=== PATIENT | female | born 1995 | race American Indian/Alaskan Native ===

== ENCOUNTER 2018-01-05 06:44 | Emergency (ER) | payer SELFPAY ==
[2018-01-05 06:55] VITALS: BMI 29.2
[2018-01-05 06:59] VITALS: RESP 18
[2018-01-05] MEDS ORDERED: Sodium Chloride 0.9% 1,000 ML IV STA (07:46)
--- NOTE | 2018-01-05 08:37 | ED PDOC ---
Arrival/HPI - General Chief Complaint: Dizziness/Lightheaded Time Seen by Provider: 01/05/18 07:22 Historian: Patient - History of Present Illness Narrative History of Present Illness (Text): 01/05/18 07:40 22 F, with past medical history of migraines, presents to the Emergency department with cc of dizziness and weakness since waking this morning at 05:00. Patient reports a headache and notes she vomited prior to arrival and has been feeling like she is going to pass out, with same symptoms currently. Patient denies any other complaints. Time/Duration: Prior to Arrival (onset at 05:00 this morning [employer] ) Symptom Onset: Sudden Symptom Course: Unchanged Context: Home Past Medical History - Provider Review Nursing Documentation Reviewed: Yes - Psychiatric Hx Substance Use: No - Anesthesia Hx Anesthesia: No Family/Social History - Physician Review Nursing Documentation Reviewed: Yes Family/Social History: No Known Family HX Smoking Status: Never Smoked Hx Alcohol Use: No Hx Substance Use: No Allergies/Home Meds Allergies/Adverse Reactions: Allergies No Known Allergies Allergy (Verified 01/05/18 07:20) Home Medications: Home Meds Medication Instructions Recorded Confirmed No Known Home Med 01/05/18 01/05/18 Review of Systems - Physician Review All systems were reviewed & negative as marked: Yes (All other systems negative except that noted in the HPI.) Physical Exam - Physical Exam Narrative Physical Exam (Text): Gen: VS reviewed, alert, well developed, well nourished, nontoxic, mild distress. ENT: normal pharynx Eye: EOMI, PERRL Neck: no JVD, supple, no adenopathy CV: regular rate, regular rhythm, no rubs, no murmer, no gallops, S1, S2, pulses equal and strong Pulm: no distress, clear to auscultation, no wheeze, no rhonci, breath sounds equal, no rales Abd: soft, nontender, no guarding, no rebound, no rigidity, normal bowel sounds Ext: no edema Skin: good color, no rash, no cyanosis Psych: responds appropriately to questions, normal affect Neuro: oriented x3, CN2-12 intact grossly, motor intact, sensation intact Vital Signs Reviewed: Yes Vital Signs Temp Pulse Resp BP Pulse Ox 01/05/18 06:58 97.8 F 72 18 106/63 100 Temperature: Afebrile Blood Pressure: Normal Pulse: Regular Respiratory Rate: Normal Appearance: Positive for: Well-Appearing, Non-Toxic, Comfortable Pain Distress: Mild Mental Status: Positive for: Alert and Oriented X 3 Medical Decision Making ED Course and Treatment: 01/05/18 07:40 Impression: Differential Diagnosis included but are not limited to: Plan: -- EKG -- CMP -- CBC (with differential) -- IV fluids -- [employer] -- Orthostatic Vital Signs -- POC Urine test -- Reassess and disposition Prior Visits: Notes and results from previous visits were reviewed. Progress Notes: 01/05/18 10:32 Pt feels better, has steady gait, nontoxic appearing, reports headache is mild and intermittent. Patient is refusing analgesics at this time. Patient is stable for discharge. - EKG Interpretation EKG Interpretation (Text): 01/05/18 10:21 0827: nsr at 71 bpm, nml qrs, nml axis, no acute sttw abn Interpreted by ED Physician: Yes - Medication Orders Current Medication Orders: Sodium Chloride (Sodium Chloride 0.9%) 1,000 mls @ 999 mls/hr IV .Q1H1M STA Stop: 01/05/18 08:46 Last Admin: 01/05/18 08:21 Dose: 999 mls/hr eMAR Start Stop Document 01/05/18 08:21 SRE (Rec: 01/05/18 08:22 SRE [id number]) Intravenous Solution Start Date 01/05/18 Start Time 08:00 End Date 01/05/18 End time 09:00 Total Infusion Time 60 - Scribe Statement The provider has reviewed the documentation as recorded by the Marjibconsuelo Hanks All medical record entries made by the Marjibconsuelo were at my direction and personally dictated by me. I have reviewed the chart and agree that the record accurately reflects my personal performance of the history, physical exam, medical decision making, and the department course for this patient. I have also personally directed, reviewed, and agree with the discharge instructions and disposition. Disposition/Present on Arrival - Present on Arrival Any Indicators Present on Arrival: No History of DVT/PE: No History of Uncontrolled Diabetes: No Urinary Catheter: No History of Decub. Ulcer: No History Surgical Site Infection Following: None - Disposition Have Diagnosis and Disposition been Completed?: Yes Diagnosis: Dizziness Disposition: HOME/ ROUTINE Disposition Time: 10:39 Patient Plan: Discharge Patient Problems: Current Active Problems Problem Status Onset Dizziness Acute Condition: STABLE Discharge Instructions (ExitCare): Dizziness, Nonvertigo, (DC) Additional Instructions: Return for any new or worsening symptoms. Follow up with your primary care doctor. HARIS JOHNSON, thank you for letting us take care of you today. Your provider was Dr. Edgar Kapadia and you were treated for dizziness.. The emergency medical care you received today was directed at your acute symptoms. If you were prescribed any medication, please fill it and take as directed. It may take several days for your symptoms to resolve. Return to the Emergency Department if your symptoms worsen, do not improve, or if you have any other problems. Please contact your doctor or call one of the physicians/clinics you have been referred to that are listed on the Patient Visit Information form that is included in your discharge packet. Bring any paperwork you were given at discharge with you along with any medications you are taking to your follow up visit. Our treatment cannot replace ongoing medical care by a primary care provider outside of the emergency department. Thank you for allowing the [facility] team to be part of your care today. If you had an X-Ray or CT scan: A Radiologist will review the ED reading if any change in treatment is needed we will contact you. If you had a blood, urine, or wound culture: It will take several days for the results, if any change in treatment is needed we will contact you. If you had an STI test: It will take 48 hours for the results. Please call after 1 week if you have not heard back. Forms: [employer] ([place]ak[employer])
[2018-01-05 08:38] LABS: BASO # 0.01 K/mm3 (0.0-2.0); BASO % 0.1 % (0.0-3.0); EOS # 0.2 (0.0-0.7); EOS % 2.8 % (1.5-5.0); GRAN # 6.38 (1.4-6.5); GRAN % 74.7 % (50.0-68.0); LYMPH # 1.4 (1.2-3.4); LYMPH % 16.1 % (22.0-35.0); MEAN CELL VOLUME 78.9 fl (80.0-105.0); MEAN CORPUSCULAR HEMOGLOBIN 25.7 pg (25.0-35.0); MEAN CORPUSCULAR HGB CONC 32.6 g/dl (31.0-37.0); MEAN PLATELET VOLUME 9.4 fl (7.0-11.0); MONO # 0.5 (0.1-0.6); MONO % 6.3 % (1.0-6.0); RBC 5.06 10^6/uL (3.5-6.1); RED CELL DISTRIBUTION WIDTH 13.9 % (11.5-14.5); WHITE BLOOD COUNT 8.6 10^3/ul (4.5-11.0)
[2018-01-05 09:37] LABS: ALB/GLOB RATIO 1.4 (1.1-1.8); ALBUMIN 4.1 g/dL (3.0-4.8); ALT/SGPT 38 U/L (7-56); AST/SGOT 23 U/L (14-36); BLOOD UREA NITROGEN 12 mg/dL (7-21); CALCIUM 9.7 mg/dL (8.4-10.5); GFR NON-AFRICAN AMERICAN > 60
[2018-01-05 10:49] VITALS: BP 118/68; PULSE 75; TEMP 98.2; O2SAT 98
--- NOTE | 2018-01-05 15:01 | CARD ---
APPROVED REPORT Date of service: 01/05/2018 EKG Measurement Heart [id number] <Conclusion> Normal sinus rhythm Normal ECG
== END 2018-01-05 10:48 | disposition home or self-care (01) ==
LOC: ED 06:44
DX: R42 Dizziness and giddiness (principal)
CPT/HCPCS: 80053; 85025; 93005; 96360; 99285; J7030